=== PATIENT | male | born 1955 | race Caucasian/White ===

== ENCOUNTER 2025-06-30 17:49 | Inpatient (IN) ==
--- NOTE | 2025-06-30 18:15 | Emergency Department Note ---
Impression & Plan Multifocal pneumonia, Hypoxia, Asthma ED Provider Note NAME: ALISON FLORES AGE: 69 SEX: M : 1955 ARRIVES VIA: Walk-In INFORMANT: Patient ED PROVIDER(S): Ismael Parker MD CHIEF COMPLAINT: Shortness of breath, Low O2 PLAN: Disposition: Admit MEDICAL DECISION MAKING: The patient is a pleasant 69-year-old gentleman with a past medical history of chronic sinusitis, history of asthma diagnosed over the past year following with pulmonology in [place], GERD, hypertension, hyperlipidemia, type 2 diabetes who presents to Emergency Department via walk-in accompanied by family for evaluation of worsening shortness of breath over the past several days where her O2 saturation was noted to be in the mid 80s on room air at home with increased work of breathing. Patient reports he has had a flare of his chronic symptoms over the past several days. He adds that he had outpatient testing through pulmonology office a week or so ago including CT imaging and sputum culture which he had brought into the office. He has yet to hear about the results. He denies fevers. He reports productive yellow/white sputum. He reports he finds it difficult to sleep as he will develop coughing fits when lying flat. On my evaluation, the patient is no distress, afebrile with O2 saturation 87% on room air improving to the low-mid 90s on 2L nasal cannula. Heart rate is in the 100s and blood pressure 150s/80s and vital signs otherwise stable. He appears clinically dry. He exhibits rhonchi of the right greater than left bilateral lower lung saini with normal respiratory effort. EKG without overt acute ischemia. CXR negative for acute cardiopulmonary process per my personal preliminary review/interpretation. WBC 13.3 K with neutrophilia but no left shift, nonspecific. Hemoglobin and platelets within normal limits. Chemistry without metabolic acidosis. Electrolytes and LFTs unremarkable. High-sensitivity troponin 6.7, within normal limits. BNP within normal limits. Lipase is normal. Procalcitonin is not elevated. TSH within normal limits. Respiratory BioFire was negative. CTA of the chest was negative for PE. Patchy nodular opacities scattered throughout the right upper and lower lobes and left lower lobe is suspicious for pneumonia. Patient was treated with IV fluid hydration, Solu-Medrol, guaifenesin, DuoNeb as well as flutter valve. Blood cultures ordered and empiric treatment initiated for CAP with CTX and doxycycline. MRSA swab pending. Case was discussed with CLAIR Joseph PAC, with CLAIR Montelongo hospitalist who will evaluate the patient for admission. Further management per admitting team. Triage Nursing notes reviewed and agree them. Prior/external medical records reviewed Vital Signs: reviewed Differential diagnosis: Reactive airway disease, pneumonia, pneumothorax, COPD, CHF, infections, cardiac ischemia, pulmonary embolism, musculoskeletal, gastrointestinal, as well as other pathologies. ER treatment provided: See below. Diagnostics interpreted by me: ECG: Normal sinus rhythm, 94 bpm, no ectopy, no overt ST elevation or depression, QTc 390, QRS 98. Cardiac Monitoring: An order for continuous cardiac monitoring was placed and demonstrated normal sinus rhythm, 94 bpm, no ectopy. Laboratory studies: See below Imaging studies: See below Consultation(s): CLAIR Joseph PAC, with CLAIR Montelongo hospitalist. HPI: Per MDM. ROS: See above HPI for pertinent positives & negatives. A total of 10 systems reviewed and were otherwise negative. VITALS:See Below PHYSICAL EXAMINATION: GENERAL: Awake, alert, in no distress HENT: Normocephalic, atraumatic. Oropharynx with dry mucous membranes and otherwise unremarkable. EYES: Normal conjunctiva. Sclera non-icteric. NECK: Supple. No nuchal rigidity. FROM. No JVD. RESPIRATORY: Rhonchi of the right greater than left bilateral lower lung saini with normal respiratory effort. CARDIAC: Tachycardic rate, normal rhythm. Extremities warm and well perfused. Pulses equal. ABDOMEN: Soft, non-distended. No tenderness to palpation. No rebound or guarding. No masses. MUSCULOSKELETAL: Chest examination reveals no tenderness. The back is symmetrical on inspection without obvious abnormality. There is no CVA tenderness to palpation. No joint edema. LOWER EXTREMITIES: Calves are equal size bilaterally and non-tender. No edema. No discoloration. NEURO: Normal sensorium. No sensory or motor deficits noted. SKIN: No rash or jaundice noted. Ismeal Parker MD Past Med/Surg History Problem List (Updated 07/01/25 @ 00:36 by Ismael Parker MD) Asthma (Acute) Hypoxia (Acute) Multifocal pneumonia (Acute) Chronic pansinusitis Hypertrophy of both inferior nasal turbinates Acquired deviated nasal septum Nasal congestion Sinusitis, maxillary, chronic Medical History Asthma Seasonal allergies High blood pressure Surgical History S/P hip replacement S/P TURP Family History Other Asthma Cancer Hypertension Social History Smoking Status: Never smoker Second Hand Exposure: No; Do You Dip or Chew Tobacco: No; Hx Alcohol Use: No Hx Substance Use: No Preferred Language: [place] Citizen Communication Ability: Effective Hearing Ability: Normal marital status: Current Living Situation: Spouse current occupational status: retired Feels Safe at Home: Yes caffeine: Yes Gender Identity: Male Allergies Allergies Allergy/AdvReac Type Severity Reaction Status Date / Time lisinopril AdvReac Intermediate Cough Verified 06/30/25 19:46 [id number] Reductase AdvReac Intermediate Muscle Pain Unverified 06/30/25 19:46 Inhibitor codeine AdvReac Mild CONSTIPATIO Verified 06/30/25 19:46 N Home Meds Home Medications Medication Instructions Recorded Confirmed azelastine 137 mcg (0.1 %) nasal 1 spray intranasal BID PRN 01/14/25 06/30/25 spray Congestion ibuprofen 200 mg tablet (Advil) 200 mg PO Q6H PRN Pain 01/14/25 06/30/25 losartan 100 mg tablet 100 mg PO DAILY 01/14/25 06/30/25 montelukast 10 mg tablet 10 mg PO DAILY 01/14/25 06/30/25 alprazolam 0.25 mg tablet 0.125 - 0.25 mg PO DAILY PRN 06/30/25 06/30/25 Anxiety ezetimibe 10 mg tablet 10 mg PO DAILY 06/30/25 06/30/25 fluticasone propionate 50 1 - 2 spray intranasal DAILY 06/30/25 06/30/25 mcg/actuation nasal spray,suspension guaifenesin 1,200 mg tablet, 1,200 mg PO Q12H PRN Congestion 06/30/25 06/30/25 extended release 12 hr (Mucinex) ipratropium 0.5 mg-albuterol 3 mg 3 ml inhalation BID 06/30/25 06/30/25 (2.5 mg base)/3 mL nebulization soln metformin 500 mg tablet,extended 1,000 mg PO QAM 06/30/25 06/30/25 release 24 hr mometasone-formoterol HFA 200 2 puff inhalation Q12H 06/30/25 06/30/25 mcg-5 mcg/actuation aerosol inhaler (Dulera) omeprazole 20 mg capsule,delayed 20 mg PO DAILYBB 06/30/25 06/30/25 release Results & Data (ED) Vital Signs Vital Signs - 24 hr 06/30/25 17:59 06/30/25 18:10 06/30/25 18:16 Temperature 36.8 C Temperature Source Oral Pulse Rate 102 H 99 H Pulse Rate [Apical] Pulse Rate from SpO2 Sensor Pulse Rhythm Regular Pulse Rhythm [Apical] Pulse Strength [Apical] Respiratory Rate 20 21 Respiratory Effort / Characteristics Respiratory Depth Respiratory Pattern Blood Pressure 154/89 H Blood Pressure [Right Arm] Blood Pressure Mean 110 Blood Pressure Mean [Right Arm] Blood Pressure Position Sitting Blood Pressure Position [Right Arm] Pulse Oximetry 87 L 88 L 95 Oxygen Delivery Method Room Air Room Air Nasal Cannula Room Air Oxygen Flow Rate Sepsis Recent Fever Within 48 Hours No Sepsis New/Unexplained Change in Mental Status No Sepsis Action Taken by Nursing No Action Required Oxygen Flow Rate - Titration 2 Pulse Oximetry Post Tiitration 95 06/30/25 18:27 06/30/25 18:57 06/30/25 18:59 Temperature Temperature Source Pulse Rate 91 H 93 H Pulse Rate [Apical] Pulse Rate from SpO2 Sensor 92 H Pulse Rhythm Pulse Rhythm [Apical] Pulse Strength [Apical] Respiratory Rate 19 Respiratory Effort / Characteristics Non-Labored Spontaneous Respiratory Depth Normal Respiratory Pattern Regular Blood Pressure Blood Pressure [Right Arm] Blood Pressure Mean Blood Pressure Mean [Right Arm] Blood Pressure Position Blood Pressure Position [Right Arm] Pulse Oximetry 98 Oxygen Delivery Method Nasal Cannula Oxygen Flow Rate 2 Sepsis Recent Fever Within 48 Hours Sepsis New/Unexplained Change in Mental Status Sepsis Action Taken by Nursing Oxygen Flow Rate - Titration Pulse Oximetry Post Tiitration 06/30/25 20:03 06/30/25 22:08 06/30/25 22:31 Temperature Temperature Source Pulse Rate 105 H 89 Pulse Rate [Apical] 82 Pulse Rate from SpO2 Sensor 100 H Pulse Rhythm Pulse Rhythm [Apical] Regular Pulse Strength [Apical] Normal Respiratory Rate 26 H 26 H Respiratory Effort / Characteristics Non-Labored Spontaneous Respiratory Depth Normal Respiratory Pattern Regular Blood Pressure 134/87 Blood Pressure [Right Arm] 126/81 Blood Pressure Mean 102 Blood Pressure Mean [Right Arm] 96 Blood Pressure Position Blood Pressure Position [Right Arm] Semi-fowlers Pulse Oximetry 95 95 Oxygen Delivery Method Room Air Nasal Cannula Oxygen Flow Rate 2 Sepsis Recent Fever Within 48 Hours Sepsis New/Unexplained Change in Mental Status Sepsis Action Taken by Nursing Oxygen Flow Rate - Titration Pulse Oximetry Post Tiitration 07/01/25 00:26 Temperature Temperature Source Pulse Rate Pulse Rate [Apical] Pulse Rate from SpO2 Sensor Pulse Rhythm Pulse Rhythm [Apical] Pulse Strength [Apical] Respiratory Rate Respiratory Effort / Characteristics Respiratory Depth Respiratory Pattern Blood Pressure Blood Pressure [Right Arm] Blood Pressure Mean Blood Pressure Mean [Right Arm] Blood Pressure Position Blood Pressure Position [Right Arm] Pulse Oximetry Oxygen Delivery Method Nasal Cannula Oxygen Flow Rate Sepsis Recent Fever Within 48 Hours Sepsis New/Unexplained Change in Mental Status Sepsis Action Taken by Nursing Oxygen Flow Rate - Titration Pulse Oximetry Post Tiitration Laboratory Data Attestation: I reviewed the patient's lab results. 06/30/25 18:47 06/30/25 18:47 Lab Results 06/30/25 06/30/25 06/30/25 Range/Units 18:32 18:47 22:05 WBC 13.31 H (4.8-10.8) K/ul RBC 4.56 L (4.70-6.10) M/uL Hgb 14.4 (14.0-18.0) g/dl Hct 40.9 L (42.0-52.0) % MCV 89.7 (80.0-100.0) fL MCH 31.6 (25.0-34.0) pg MCHC 35.2 (32.0-36.0) g/dL RDW Std Deviation 41.9 (36.4-46.3) fL RDW Coeff of [place] 12.9 (11.5-14.5) % Plt Count 259 (130-400) K/uL MPV 9.6 (9.4-12.4) fL Immature Gran % (Auto) 0.4 % Neut % (Auto) 82.9 % Lymph % (Auto) 9.8 % [place] % (Auto) 6.2 % Eos % (Auto) 0.5 % Baso % (Auto) 0.2 % Neut # (Auto) 11.04 H (1.40-6.50) K/uL Lymph # (Auto) 1.31 (1.20-3.40) K/uL [place] # (Auto) 0.82 H (0.11-0.59) K/uL Eos # (Auto) 0.06 (0.00-0.50) K/uL Baso # (Auto) 0.03 (0.00-0.20) K/uL Immature Gran # (Auto) 0.05 (0.01-0.20) K/uL PT 11.2 (9.0-12.0) Seconds INR 1.1 (0.9-1.1) VBG pH 7.41 (7.36-7.41) VBG pCO2 46 (38-50) mmHg VBG pO2 33 mmHg VBG HCO3 29 mmol/L VBG O2 Saturation < 60.0 % VBG Base Excess 3.8 mEq/L Sodium 135 L (136-145) mmol/L Potassium 4.3 (3.5-5.1) mmol/L Chloride 100 (98-107) mmol/L Carbon Dioxide 28 (21-32) mmol/L Anion Gap 7 (3-11) BUN 14 (6-23) mg/dl Creatinine 1.06 (0.6-1.4) mg/dl Est Cr Clr Drug Dosing 78.9 ml/min eGFR 75.97 BUN/Creatinine Ratio 13.2 (10-20) Glucose 110 H (70-99(Fasting)) mg/dl Lactate 3.3 H* (0.4-2.0) mmol/L Calcium 9.6 (8.6-10.3) mg/dl Magnesium 1.9 (1.7-2.4) mg/dl Total Bilirubin 0.6 (0.2-1.0) mg/dl AST 15 (13-39) U/L ALT 19 (7-52) U/L Alkaline Phosphatase 90 (34-104) U/L Troponin I High Sens 6.7 (0-20) pg/ml B-Natriuretic Peptide 10 (0-100) pg/ml Total Protein 7.4 (6.0-8.3) gm/dl Albumin 3.9 (3.4-5.0) gm/dl Globulin 3.5 (2.5-4.0) gm/dl Albumin/Globulin Ratio 1.1 (0.9-2) Lipase 12 (11-82) U/L Procalcitonin 0.04 (0-0.5) ng/ml TSH 2.374 (0.300-4.500) uIu/ml Nasal Screen MRSA (PCR) (Negative) Adenovirus (PCR) Not Detected (NotDetected) B. pertussis DNA (PCR) Not Detected (NotDetected) B.parapertussis DNA PCR Not Detected (NotDetected) C. pneumoniae DNA (PCR) Not Detected (NotDetected) Coronavirus OC43 (PCR) Not Detected (NotDetected) Coronavirus HKU1 (PCR) Not Detected (NotDetected) Coronavirus 229E (PCR) Not Detected (NotDetected) SARS-CoV-2 (PCR) Not Detected (NotDetected) Coronavirus NL63 (PCR) Not Detected (NotDetected) Human Metapneumovir PCR Not Detected (NotDetected) Influenza Type A (PCR) Not Detected (NotDetected) Influenza Type B (PCR) Not Detected (NotDetected) M. pneumoniae (PCR) Not Detected (NotDetected) Parainfluenza 1 (PCR) Not Detected (NotDetected) Parainfluenza 2 (PCR) Not Detected (NotDetected) Parainfluenza 3 (PCR) Not Detected (NotDetected) Parainfluenza 4 (PCR) Not Detected (NotDetected) RSV (PCR) Not Detected (NotDetected) Entero/Rhino (PCR) Not Detected (NotDetected) 06/30/25 Range/Units 22:23 WBC (4.8-10.8) K/ul RBC (4.70-6.10) M/uL Hgb (14.0-18.0) g/dl Hct (42.0-52.0) % MCV (80.0-100.0) fL MCH (25.0-34.0) pg MCHC (32.0-36.0) g/dL RDW Std Deviation (36.4-46.3) fL RDW Coeff of [place] (11.5-14.5) % Plt Count (130-400) K/uL MPV (9.4-12.4) fL Immature Gran % (Auto) % Neut % (Auto) % Lymph % (Auto) % [place] % (Auto) % Eos % (Auto) % Baso % (Auto) % Neut # (Auto) (1.40-6.50) K/uL Lymph # (Auto) (1.20-3.40) K/uL [place] # (Auto) (0.11-0.59) K/uL Eos # (Auto) (0.00-0.50) K/uL Baso # (Auto) (0.00-0.20) K/uL Immature Gran # (Auto) (0.01-0.20) K/uL PT (9.0-12.0) Seconds INR (0.9-1.1) VBG pH (7.36-7.41) VBG pCO2 (38-50) mmHg VBG pO2 mmHg VBG HCO3 mmol/L VBG O2 Saturation % VBG Base Excess mEq/L Sodium (136-145) mmol/L Potassium (3.5-5.1) mmol/L Chloride (98-107) mmol/L Carbon Dioxide (21-32) mmol/L Anion Gap (3-11) BUN (6-23) mg/dl Creatinine (0.6-1.4) mg/dl Est Cr Clr Drug Dosing ml/min eGFR BUN/Creatinine Ratio (10-20) Glucose (70-99(Fasting)) mg/dl Lactate (0.4-2.0) mmol/L Calcium (8.6-10.3) mg/dl Magnesium (1.7-2.4) mg/dl Total Bilirubin (0.2-1.0) mg/dl AST (13-39) U/L ALT (7-52) U/L Alkaline Phosphatase (34-104) U/L Troponin I High Sens (0-20) pg/ml B-Natriuretic Peptide (0-100) pg/ml Total Protein (6.0-8.3) gm/dl Albumin (3.4-5.0) gm/dl Globulin (2.5-4.0) gm/dl Albumin/Globulin Ratio (0.9-2) Lipase (11-82) U/L Procalcitonin (0-0.5) ng/ml TSH (0.300-4.500) uIu/ml Nasal Screen MRSA (PCR) Positive A (Negative) Adenovirus (PCR) (NotDetected) B. pertussis DNA (PCR) (NotDetected) B.parapertussis DNA PCR (NotDetected) C. pneumoniae DNA (PCR) (NotDetected) Coronavirus OC43 (PCR) (NotDetected) Coronavirus HKU1 (PCR) (NotDetected) Coronavirus 229E (PCR) (NotDetected) SARS-CoV-2 (PCR) (NotDetected) Coronavirus NL63 (PCR) (NotDetected) Human Metapneumovir PCR (NotDetected) Influenza Type A (PCR) (NotDetected) Influenza Type B (PCR) (NotDetected) M. pneumoniae (PCR) (NotDetected) Parainfluenza 1 (PCR) (NotDetected) Parainfluenza 2 (PCR) (NotDetected) Parainfluenza 3 (PCR) (NotDetected) Parainfluenza 4 (PCR) (NotDetected) RSV (PCR) (NotDetected) Entero/Rhino (PCR) (NotDetected) Administered Medications Vancomycin HCl 2,000 mg/ (Sodium Chloride) 540 mls @ 200 mls/hr IV ONE STA Stop: 07/01/25 01:20 Last Admin: 06/30/25 23:16 Dose: 200 mls/hr Documented By: MAURA Discontinued Medications Albuterol (Albut/Ipratrop 3mg/0.5mg Neb 3 Ml Vial) 3 ml NEB NOW STA; Protocol Stop: 06/30/25 18:25 Last Admin: 06/30/25 18:54 Dose: 3 ml Documented By: ivet Guaifenesin (Guaifenesin 600 Mg Tabcr) 1,200 mg PO NOW STA Stop: 06/30/25 18:25 Last Admin: 06/30/25 18:54 Dose: 1,200 mg Documented By: ivet Sodium Chloride (Nss) 500 mls @ 999 mls/hr IV .Q31M ONE Stop: 06/30/25 18:55 Last Infusion: 06/30/25 19:29 Dose: Infused Documented By: ivet Admin: 06/30/25 18:46 Dose: 999 mls/hr Documented By: PARVIN Ceftriaxone Sodium (Rocephin) 2,000 mg in 50 mls @ 100 mls/hr IV NOW STA Stop: 06/30/25 21:58 Last Admin: 06/30/25 22:33 Dose: Not Given Documented By: ivet Doxycycline Hyclate 100 mg/ (Dextrose) 100 mls @ 50 mls/hr IV NOW STA Stop: 06/30/25 23:28 Last Admin: 06/30/25 22:33 Dose: Not Given Documented By: ivet Cefepime HCl (Maxipime 2000mg) 2,000 mg in 20 mls @ 5 mls/min IV ONE STA; Protocol Stop: 06/30/25 22:43 Last Admin: 06/30/25 23:16 Dose: 5 mls/min Documented By: MAURA Ioversol (Optiray 320 125ml) 115 ml IV ONCE ONE Stop: 06/30/25 19:45 Last Admin: 06/30/25 19:44 Dose: 115 ml Documented By: VICTORINO Methylprednisolone (Methylprednisolone 125 Mg/2 Ml Vial) 125 mg IV NOW STA Stop: 06/30/25 18:25 Last Admin: 06/30/25 18:54 Dose: 125 mg Documented By: ivet Psyllium Hydrophilic Mucilloid (Psyllium Husk 4gm Packet) 4 gm PO NOW STA Stop: 06/30/25 22:28 Last Admin: 06/30/25 23:16 Dose: 4 gm Documented By: MAURA Imaging Data Radiologist's Impression: Chest X-Ray 06/30/25 18:11 Chest radiograph, one view History: Chest pain Comparison: None Findings: Single AP view of the chest performed. No focal consolidation or pleural effusion. No pneumothorax. The cardiomediastinal silhouette is within normal limits. Normal pulmonary vascularity. No evidence for lymphadenopathy. No visualized bony or soft tissue abnormality. Impression: Normal chest radiograph Electronically signed by Mik Baez 06-30-2025 7:01 PM Chest CTA 06/30/25 18:24 Exam(s): CTA CHEST IV Amt: 115 ml optiray 320 EXAM: CT Angiography Chest With Intravenous Contrast CLINICAL HISTORY: Reason for exam: cough, sob, r/o PE. TECHNIQUE: Axial computed tomographic angiography images of the chest with intravenous contrast. CTDI is 37.25 mGy and DLP is 845.9 mGy-cm. Automated exposure control was utilized for the study. A dose lowering technique was utilized adhering to the principles of ALARA. MIP reconstructed images were created and reviewed. COMPARISON: No relevant prior studies available. FINDINGS: Pulmonary arteries: Unremarkable. No pulmonary embolus. Aorta: No acute findings. No thoracic aortic aneurysm. Lungs: Patchy branching nodular opacity scattered throughout the right upper and lower lobes. Similar though less conspicuous branching nodular opacities identified within the left lower lobe. Pleural space: Unremarkable. No significant effusion. No pneumothorax. Heart: Unremarkable. No cardiomegaly. No significant pericardial effusion. No evidence of RV dysfunction. Bones/joints: No acute fracture. No dislocation. Soft tissues: Unremarkable. Lymph nodes: Unremarkable. No enlarged lymph nodes. Liver: Hepatomegaly. Adrenals: 1.2 cm left adrenal gland hypodensity likely representing nodule. IMPRESSION: No pulmonary embolus Multifocal pneumonia Electronically signed by: Rodriguez Jose MD 06/30/25 21:22 PM Discharge Plan Visit Data Chief Complaint: Respiratory Problems Stated Complaint: BREATHING PROBLEMS ED Provider: Ismael Parker Discharge Problem: Multifocal pneumonia, Hypoxia, Asthma Patient Disposition: Admitted As Inpatient Condition: Fair Discharge Instructions Interventions: ED Discharge Assessment Last Done: 07/01/25 00:26 Forms Stand Alone Forms: [facility] Prescriptions Prescriptions: No Action losartan 100 mg tablet 100 mg PO DAILY montelukast 10 mg tablet 10 mg PO DAILY ibuprofen [Advil] 200 mg tablet 200 mg PO Q6H PRN (Reason: Pain) azelastine 137 mcg (0.1 %) spray,non-aerosol 1 spray intranasal BID PRN (Reason: Congestion) Rx Instructions: administer into each nostril ipratropium-albuterol 0.5 mg-3 mg(2.5 mg base)/3 mL solution for nebulization 3 ml INHALATION BID alprazolam 0.25 mg tablet 0.125 - 0.25 mg PO DAILY PRN (Reason: Anxiety) omeprazole 20 mg capsule,delayed release(DR/EC) 20 mg PO DAILYBB fluticasone propionate 50 mcg/actuation spray,suspension 1 - 2 spray INTRANASAL DAILY metformin 500 mg tablet extended release 24 hr 1,000 mg PO QAM ezetimibe 10 mg tablet 10 mg PO DAILY guaifenesin [Mucinex] 1,200 mg Tablet Extended Release 12hr 1,200 mg PO Q12H PRN (Reason: Congestion) Dulera 200-5 mcg/actuation HFA aerosol inhaler 2 puff INHALATION Q12H Referrals Referrals: PCP,NO [Physician] - Discharge Problem: Asthma Qualifiers: Asthma severity: unspecified severity Asthma persistence: unspecified Asthma complication type: with acute exacerbation Qualified Code(s): J45.901 - Unspecified asthma with (acute) exacerbation
[2025-06-30] MEDS: SODIUM CHLORIDE 0.9% 500 ML IV ONE (18:46)
[2025-06-30] MEDS: guaiFENesin 600 MG TABCR PO STA (18:54)
[2025-06-30] MEDS: ALBUT/IPRATROP 3MG/0.5MG NEB 3 ML VIAL NEB STA (18:54)
[2025-06-30 18:58] LABS: Base Excess VBG 3.8 mEq/L; HCO3 VBG 29 mmol/L; Oxygen Saturation VBG < 60.0 %; PCO2 VBG 46 mmHg (38-50); PO2 VBG 33 mmHg; pH VBG 7.41 (7.36-7.41)
--- NOTE | 2025-06-30 19:01 | XRay Report ---
Chest radiograph, one view History: Chest pain Comparison: None Findings: Single AP view of the chest performed. No focal consolidation or pleural effusion. No pneumothorax. The cardiomediastinal silhouette is within normal limits. Normal pulmonary vascularity. No evidence for lymphadenopathy. No visualized bony or soft tissue abnormality. Impression: Normal chest radiograph Electronically signed by Mik Baez 06-30-2025 7:01 PM
[2025-06-30 19:04] LABS: Hematocrit (blood only) 40.9 % (42.0-52.0); Hemoglobin 14.4 g/dl (14.0-18.0); Immature Granulocytes # (auto) 0.05 K/uL (0.01-0.20); Immature Granulocytes % (auto) 0.4 %; Mean Corpuscular Hemoglobin 31.6 pg (25.0-34.0); Mean Corpuscular Volume 89.7 fL (80.0-100.0); Platelet Count 259 K/uL (130-400); RDW Standard Deviation 41.9 fL (36.4-46.3); Red Blood Count 4.56 M/uL (4.70-6.10); White Blood Count 13.31 K/ul (4.8-10.8)
[2025-06-30 19:22] LABS: Alanine Aminotransferase 19.0 U/L (7-52); Albumin Globulin Ratio 1.1 (0.9-2); Albumin Level 3.9 gm/dl (3.4-5.0); Alkaline Phosphatase 90.0 U/L (34-104); Anion Gap 7.0 (3-11); Bilirubin,Total 0.6 mg/dl (0.2-1.0); Blood Urea Nitrogen 14.0 mg/dl (6-23); Calcium 9.6 mg/dl (8.6-10.3); Carbon Dioxide 28.0 mmol/L (21-32); Chloride 100.0 mmol/L (98-107); Creatinine Clr Calc Pharmacy 78.9 ml/min; Globulin 3.5 gm/dl (2.5-4.0); Glucose 110.0 mg/dl (70-99(Fasting)); Lipase 12.0 U/L (11-82); Magnesium 1.9 mg/dl (1.7-2.4); Potassium 4.3 mmol/L (3.5-5.1); Sodium 135.0 mmol/L (136-145); Total Protein 7.4 gm/dl (6.0-8.3)
[2025-06-30 19:37] LABS: Thyroid Stimulating Hormone 2.374 uIu/ml (0.300-4.500)
[2025-06-30 19:43] LABS: Chlamydia pneumoniae PCR Not Detected (NotDetected); Coronavirus 229E PCR Not Detected (NotDetected); Coronavirus CoV-2 (COVID19)PCR Not Detected (NotDetected); Coronavirus HKU1 PCR Not Detected (NotDetected); Coronavirus NL63 PCR Not Detected (NotDetected); Coronavirus OC43PCR Not Detected (NotDetected); Human Metapneumovirus PCR Not Detected (NotDetected); Parainfluenza Virus 1 PCR Not Detected (NotDetected); Parainfluenza Virus 2 PCR Not Detected (NotDetected); Parainfluenza Virus 3 PCR Not Detected (NotDetected); Parainfluenza Virus 4 PCR Not Detected (NotDetected); Respiratory Syncytial VirusPCR Not Detected (NotDetected); Rhinovirus/Enterovirus PCR Not Detected (NotDetected)
[2025-06-30] MEDS: OPTIRAY 320 125ml IV ONE (19:44)
[2025-06-30 19:46] LABS: INR 1.1 (0.9-1.1); Prothrombin Time 11.2 Seconds (9.0-12.0)
--- NOTE | 2025-06-30 21:23 | CT Scan Report ---
Exam(s): CTA CHEST IV Amt: 115 ml optiray 320 EXAM: CT Angiography Chest With Intravenous Contrast CLINICAL HISTORY: Reason for exam: cough, sob, r/o PE. TECHNIQUE: Axial computed tomographic angiography images of the chest with intravenous contrast. CTDI is 37.25 mGy and DLP is 845.9 mGy-cm. Automated exposure control was utilized for the study. A dose lowering technique was utilized adhering to the principles of ALARA. MIP reconstructed images were created and reviewed. COMPARISON: No relevant prior studies available. FINDINGS: Pulmonary arteries: Unremarkable. No pulmonary embolus. Aorta: No acute findings. No thoracic aortic aneurysm. Lungs: Patchy branching nodular opacity scattered throughout the right upper and lower lobes. Similar though less conspicuous branching nodular opacities identified within the left lower lobe. Pleural space: Unremarkable. No significant effusion. No pneumothorax. Heart: Unremarkable. No cardiomegaly. No significant pericardial effusion. No evidence of RV dysfunction. Bones/joints: No acute fracture. No dislocation. Soft tissues: Unremarkable. Lymph nodes: Unremarkable. No enlarged lymph nodes. Liver: Hepatomegaly. Adrenals: 1.2 cm left adrenal gland hypodensity likely representing nodule. IMPRESSION: No pulmonary embolus Multifocal pneumonia Electronically signed by: Rodriguez Jose MD 06/30/25 21:22 PM
--- NOTE | 2025-06-30 21:56 | History & Physical Report ---
Date of Service June 30, 2025 Assessment & Plan (1) Multifocal pneumonia: (2) Hypoxia: (3) Asthma: Plan 69-year-old male PMHx asthma and chronic sinus conditions presenting for worsening shortness of breath and congestion over the past week. His evaluation is significant for mild leukocytosis, but normal VBGs, BNP, and procal. CTA chest reveals evidence of multifocal PNA. Given recent doctor's office visit with possible exposure as well as in setting of hypoxia and evidence of infection, admission for HAP for IV antibiotics. #HAP/Hypoxia/Asthma Ongoing congestion and shortness of breath, seen by assembler finger buffs ~ 2 weeks TIPPLE ENGINEER, pending sputum culture and chest CT results from outpatient provider. Documented history of asthma, on inhalers daily and montelukast. Given recent healthcare exposure, will treat for HAP. No O2 at baseline. Received methylprednisolone IV in ED. - CBC leukocytosis 13.31; VBG's WNL; troponin 6.7; BNP 10; procalcitonin 0.04; MRSA swab pending - CBC am - BioFire negative - Sputum culture pending, blood cx pending - CXR WNL - Chest CTA negative for PE, reveals multifocal PNA - EKG NSR - O2 via NC to maintain >92%; No O2 at baseline - Flutter valve + incentive spirometer - Acetaminophen prn fever/pain - Hypertonic saline nebs BID - Mucinex BID - Cont Dulera - DuoNebs sylwia - Vanco + cefepime IV #HTN- Losartan - continue #HLD- Ezetimibe - continue #T2DM- Metformin - hold at admission #GERD- Omeprazole - continue #Psych- Alprazolam prn - continue Dispo: Admit, med/tele VTE Prophylaxis: Lovenox This document was dictated utilizing [employer]. Please excuse any grammatical errors that may be secondary to use of this software. Admission and Anticipated Discharge Date Admission Date: 06/30/2025 History of Present Illness Chief Complaint: SOB Primary Care Provider: Roseline Maher 69-year-old male PMHx asthma and chronic sinus conditions presenting for worsening shortness of breath and congestion over the past week. Patient was seen by his assembler finger buffs 2 weeks TIPPLE ENGINEER, still waiting for chest imaging and sp utum culture results to return. Patient states that he was diagnosed with asthma, but that his PCP was concerned that there was another underlying diagnosis. He does admit to on and off shortness of breath that has been worsening over the past week, stating that his chest will get tight at times and he feels as though he cannot get a full breath in and out. Over the weekend, he started to develop worsening productive cough with yellow sputum. He has to cough up sputum approximately every 15 minutes. 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 He did have chills the day TIPPLE ENGINEER, but no documented fever. Patient states that he often has sinus symptoms and he did have a sinus surgery in February or March 2025. He uses daily sinus rinses. Overall the cough and shortness of breath is worsened, prompting him to come to the ED in conjunction with low oxygen readings at home, into the mid 80s. Patient denies chest pain, palpitations, abdominal pain, N/V/D/C, numbness/tingling, fever, LUTS, additional URI symptoms, weakness, or falls. No known sick contacts. Never smoked. Patient does landscaping, states that there may be possible exposure irritating his breathing. He does use his daily nebulizer and inhalers. ED evaluation reveals CBC with mild leukocytosis 13.31, H&H 14.4/40.9; PT/INR WNL; VBG's WNL; CMP sodium 135, glucose 110; troponin 6.7; BNP 10; procalcitonin 0.04; BioFire negative; CXR WNL; chest CTA no PE, multifocal PNA noted; EKG NSR at 94 bpm.; Provided with 500 mL NSS, methylprednisolone 125 mg IV, guaifenesin 1200 mg p.o., doxycycline 100 mg IV, ceftriaxone 2 g IV, and albuterol nebulizer in ED. Please see Dr. Fleming's attestation for adjustments/additions to treatment plan. Allergies Allergy/AdvReac Type Severity Reaction Status Date / Time lisinopril AdvReac Intermediate Cough Verified 06/30/25 19:46 Gespzby-GPO-SoN Reductase AdvReac Intermediate Muscle Pain Unverified 06/30/25 19:46 Inhibitor codeine AdvReac Mild CONSTIPATIO Verified 06/30/25 19:46 N Home Medications Medication Instructions Recorded Confirmed Type azelastine 137 mcg (0.1 %) nasal 1 spray intranasal BID PRN 01/14/25 06/30/25 History spray Congestion ibuprofen 200 mg tablet (Advil) 200 mg PO Q6H PRN Pain 01/14/25 06/30/25 History losartan 100 mg tablet 100 mg PO DAILY 01/14/25 06/30/25 History montelukast 10 mg tablet 10 mg PO DAILY 01/14/25 06/30/25 History alprazolam 0.25 mg tablet 0.125 - 0.25 mg PO DAILY PRN 06/30/25 06/30/25 History Anxiety ezetimibe 10 mg tablet 10 mg PO DAILY 06/30/25 06/30/25 History fluticasone propionate 50 1 - 2 spray intranasal DAILY 06/30/25 06/30/25 History mcg/actuation nasal spray,suspension guaifenesin 1,200 mg tablet, 1,200 mg PO Q12H PRN Congestion 06/30/25 06/30/25 History extended release 12 hr (Mucinex) ipratropium 0.5 mg-albuterol 3 mg 3 ml inhalation BID 06/30/25 06/30/25 History (2.5 mg base)/3 mL nebulization soln metformin 500 mg tablet,extended 1,000 mg PO QAM 06/30/25 06/30/25 History release 24 hr mometasone-formoterol HFA 200 2 puff inhalation Q12H 06/30/25 06/30/25 History mcg-5 mcg/actuation aerosol inhaler (Dulera) omeprazole 20 mg capsule,delayed 20 mg PO DAILYBB 06/30/25 06/30/25 History release Past Med/Surg History Problem List (Updated 07/01/25 @ 00:36 by Ismael Parker MD) Asthma (Acute) Hypoxia (Acute) Multifocal pneumonia (Acute) Chronic pansinusitis Hypertrophy of both inferior nasal turbinates Acquired deviated nasal septum Nasal congestion Sinusitis, maxillary, chronic Medical History Asthma Seasonal allergies High blood pressure Surgical History S/P hip replacement S/P TURP Family History Other Asthma Cancer Hypertension Social History Smoking Status: Never smoker Second Hand Exposure: No; Do You Dip or Chew Tobacco: No; Hx Alcohol Use: Yes Alcohol type: hard liquor Hx Substance Use: No Preferred Language: Togolese Communication Ability: Effective Hearing Ability: Normal Lead Dental Assistant Required: No Beliefs That Will Affect Care: None marital status: Current Living Situation: Spouse current occupational status: retired Other Information That Helps Us Care for You: No Feels Safe at Home: Yes Safety Concerns: Feels Safe At This Time caffeine: Yes Gender Identity: Male Assistive Devices: None Review of Systems Review of Systems: All systems reviewed & are unremarkable except as noted in Subjective Physical Exam Physical Exam: General: No acute distress Skin: Warm and dry Head: Normocephalic, atraumatic Eyes: PERRL, conjunctivae clear, sclera non-icteric ENT: External ear and ear canal without swelling; nose atraumatic; good dentition, tongue normal appearance, pharynx normal Neck: Supple, no LAD Cardio: RRR, no M/G/R, S1 and S2 normal Resp: Wearing O2 via NC (not at baseline); no respiratory distress, mild crackles RLL otherwise lungs CTA, no wheezes, rales, or rhonchi Abdomen: Soft, symmetric, nontender; No masses or hepatosplenomegaly; Bowel sounds normoactive MSK: No deformities; pulses palpable and equal; no edema. Neuro: Awake, alert; Sensation intact bilaterally; CN grossly intact Psych: Appropriate mood and affect; good judgement and insight. and daughter present in room at time of visit. Results & Data Results & Data Vital Signs (Past 12 Hours) Vital Signs Temp Pulse Resp BP Pulse Ox O2 Del Method O2 Flow Rate 06/30/25 20:03 105 H 26 H 134/87 95 Room Air 06/30/25 18:59 Nasal Cannula 2 06/30/25 18:57 93 H 19 98 06/30/25 18:27 91 H 06/30/25 18:16 99 H 21 95 Room Air 06/30/25 18:10 88 L Room Air, Nasal Cannula 06/30/25 17:59 36.8 C 102 H 20 154/89 H 87 L Room Air Laboratory Results 06/30/25 06/30/25 18:47 18:32 WBC 13.31 H RBC 4.56 L Hgb 14.4 Hct 40.9 L MCV 89.7 MCH 31.6 MCHC 35.2 RDW Std Deviation 41.9 RDW Coeff of [place] 12.9 Plt Count 259 MPV 9.6 Immature Gran % (Auto) 0.4 Neut % (Auto) 82.9 Lymph % (Auto) 9.8 [place] % (Auto) 6.2 Eos % (Auto) 0.5 Baso % (Auto) 0.2 Neut # (Auto) 11.04 H Lymph # (Auto) 1.31 [place] # (Auto) 0.82 H Eos # (Auto) 0.06 Baso # (Auto) 0.03 Immature Gran # (Auto) 0.05 PT 11.2 INR 1.1 VBG pH 7.41 VBG pCO2 46 VBG pO2 33 VBG HCO3 29 VBG O2 Saturation < 60.0 VBG Base Excess 3.8 Sodium 135 L Potassium 4.3 Chloride 100 Carbon Dioxide 28 Anion Gap 7 BUN 14 Creatinine 1.06 Est Cr Clr Drug Dosing 78.9 eGFR 75.97 BUN/Creatinine Ratio 13.2 Glucose 110 H Calcium 9.6 Magnesium 1.9 Total Bilirubin 0.6 AST 15 ALT 19 Alkaline Phosphatase 90 Troponin I High Sens 6.7 B-Natriuretic Peptide 10 Total Protein 7.4 Albumin 3.9 Globulin 3.5 Albumin/Globulin Ratio 1.1 Lipase 12 Procalcitonin 0.04 TSH 2.374 Adenovirus (PCR) Not Detected B. pertussis DNA (PCR) Not Detected B.parapertussis DNA PCR Not Detected C. pneumoniae DNA (PCR) Not Detected Coronavirus OC43 (PCR) Not Detected Coronavirus HKU1 (PCR) Not Detected Coronavirus 229E (PCR) Not Detected SARS-CoV-2 (PCR) Not Detected Coronavirus NL63 (PCR) Not Detected Human Metapneumovir PCR Not Detected Influenza Type A (PCR) Not Detected Influenza Type B (PCR) Not Detected M. pneumoniae (PCR) Not Detected Parainfluenza 1 (PCR) Not Detected Parainfluenza 2 (PCR) Not Detected Parainfluenza 3 (PCR) Not Detected Parainfluenza 4 (PCR) Not Detected RSV (PCR) Not Detected Entero/Rhino (PCR) Not Detected Diagnostic Findings Chest X-Ray 06/30/25 18:11 Chest radiograph, one view History: Chest pain Comparison: None Findings: Single AP view of the chest performed. No focal consolidation or pleural effusion. No pneumothorax. The cardiomediastinal silhouette is within normal limits. Normal pulmonary vascularity. No evidence for lymphadenopathy. No visualized bony or soft tissue abnormality. Impression: Normal chest radiograph Electronically signed by BaezMik 06-30-2025 7:01 PM Chest CTA 06/30/25 18:24 Exam(s): CTA CHEST IV Amt: 115 ml optiray 320 EXAM: CT Angiography Chest With Intravenous Contrast CLINICAL HISTORY: Reason for exam: cough, sob, r/o PE. TECHNIQUE: Axial computed tomographic angiography images of the chest with intravenous contrast. CTDI is 37.25 mGy and DLP is 845.9 mGy-cm. Automated exposure control was utilized for the study. A dose lowering technique was utilized adhering to the principles of ALARA. MIP reconstructed images were created and reviewed. COMPARISON: No relevant prior studies available. FINDINGS: Pulmonary arteries: Unremarkable. No pulmonary embolus. Aorta: No acute findings. No thoracic aortic aneurysm. Lungs: Patchy branching nodular opacity scattered throughout the right upper and lower lobes. Similar though less conspicuous branching nodular opacities identified within the left lower lobe. Pleural space: Unremarkable. No significant effusion. No pneumothorax. Heart: Unremarkable. No cardiomegaly. No significant pericardial effusion. No evidence of RV dysfunction. Bones/joints: No acute fracture. No dislocation. Soft tissues: Unremarkable. Lymph nodes: Unremarkable. No enlarged lymph nodes. Liver: Hepatomegaly. Adrenals: 1.2 cm left adrenal gland hypodensity likely representing nodule. IMPRESSION: No pulmonary embolus Multifocal pneumonia Electronically signed by: Rodriguez Jose MD 06/30/25 21:22 PM Medications Administered 500 mL NSS Methylprednisolone 125 mg IV Guaifenesin 1200 mg p.o. Doxycycline 100 mg IV Ceftriaxone 2 g IV Albuterol nebulizer ECG Additional Comments: NSR 94 bpm, MA 172, QRS 98, QT/QTc 312/390, PRT -16/-12/-4 Code Status & VTE Plan Code Status Full Supervising Physician Co-Signing Physician Notes Attending addendum: I have physically seen this patient, have supervised the GARY's activities, and agree with the H&P unless as otherwise noted. Assessment and Plan: The patient is a 69-year-old male with a past medical history including asthma, chronic sinus condition, hyperlipidemia, anxiety, diabetes mellitus, and GERD. He presents to the emergency department with worsening shortness of breath and chest congestion over the past week. CTA chest was negative for PE, but did show evidence of multifocal pneumonia. He was also found to be hypoxic, with pulse ox in the mid 80s, which improved with nasal cannula oxygen. Admitted to a monitored bed for HAP on IV antibiotics. HAP/hypoxia/asthma exacerbation- Admitting to monitored bed Respiratory BioFire testing negative. Sputum culture and Gram stain pending Normal-appearing chest x-ray CTA chest negative for PE protocol does show multifocal pneumonia. Room air pulse ox mid 80s, improved with nasal cannula oxygen with titration goal to 92% Flutter valve Incentive spirometry Acetaminophen 650 mg by mouth every 6 hours as needed for mild pain or fever Hypertonic saline nebs twice daily Mucinex 600 mg p.o. twice daily Continue Dulera Duonebs every 4 hours while awake and every 2 hours when necessary. Vancomycin IV and cefepime IV Hypertension- Continue losartan with hold parameters Hyperlipidemia- Continue Zetia Diabetes mellitus Holding metformin GERD- Change omeprazole to pantoprazole per formulary interchange Anxiety- Continue alprazolam as needed PG Care Time/CCT Total # of Minutes Spent Total Time Spent with Patient: Total time spent is greater than 50% in coordination of care (as documented) at patient's floor/unit and/or counseling patient: Coding Level of Care Code 83507 INT INP/OBS CARE 3/75MIN Diagnoses Multifocal pneumonia J18.8 Hypoxia R09.02 Asthma J45.901 Asthma complication type: with acute exacerbation Asthma persistence: unspecified Asthma severity: unspecified severity (3) Asthma Asthma complication type: with acute exacerbation Asthma persistence: unspecified Asthma severity: unspecified severity Qualified Code(s): J45.901 - Unspecified asthma with (acute) exacerbation
[2025-06-30] MEDS ORDERED: VANCOMYCIN CONSULT ACTIVE PRN (22:27)
[2025-06-30] MEDS: DOXYCYCLINE HYCLATE 100 MG in DEXTROSE 5% MINI-B 100 ML IV STA (22:33)
[2025-06-30] MEDS: cefTRIAXone SODIUM 2,000 MG/50 ML BAG IV STA (22:33)
[2025-06-30] MEDS: VANCOMYCIN HCL 2,000 MG in SODIUM CHLORIDE 0.9% 500 ML IV STA (23:16)
[2025-06-30] MEDS: CEFEPIME 2000MG 2,000 MG/20 ML SYR IV STA (23:16)
[2025-06-30] MEDS: PSYLLIUM HUSK 4GM PACKET PO STA (23:16)
[2025-07-01] MEDS ORDERED: IBUPROFEN 200 MG TAB PO PRN (00:55)
[2025-07-01] MEDS ORDERED: AZELASTINE HCL 0.1% NASAL 200 SPRAYS/27,400 MCG BTL PRN (00:55)
[2025-07-01] MEDS ORDERED: POLYETHYLENE (MIRALAX) 17 GM PACK PO PRN (00:55)
[2025-07-01] MEDS ORDERED: ONDANSETRON INJ 2 MG/ML 2 ML VIAL IV PRN (00:55)
[2025-07-01] MEDS ORDERED: guaiFENesin 600 MG TABCR PO PRN (00:55)
[2025-07-01] MEDS ORDERED: MELATONIN 3 MG TAB PO PRN (00:55)
[2025-07-01] MEDS: ALBUT/IPRATROP 3MG/0.5MG NEB 3 ML VIAL NEB SCH (03:26)
[2025-07-01 07:27] LABS: Hematocrit (blood only) 40.6 % (42.0-52.0); Hemoglobin 14.1 g/dl (14.0-18.0); Mean Corpuscular Hemoglobin 31.2 pg (25.0-34.0); Mean Corpuscular Volume 89.8 fL (80.0-100.0); Platelet Count 272 K/uL (130-400); RDW Standard Deviation 42.1 fL (36.4-46.3); Red Blood Count 4.52 M/uL (4.70-6.10); White Blood Count 10.57 K/ul (4.8-10.8)
[2025-07-01] MEDS: SODIUM CHLOR 7% 4 ML NEB NEB SCH (07:35)
[2025-07-01 07:47] LABS: Creatinine Clr Calc Pharmacy 86.1 ml/min
[2025-07-01] MEDS: EZETIMIBE 10 MG TAB PO SCH (08:01)
[2025-07-01] MEDS: ENOXAPARIN INJ 40 MG/0.4 ML SYR SQ SCH (08:01)
[2025-07-01] MEDS: MONTELUKAST SODIUM 10 MG TABLET PO SCH (08:01)
[2025-07-01] MEDS: LOSARTAN POTASSIUM 50 MG TAB PO SCH (08:01)
[2025-07-01] MEDS: VANCOMYCIN HCL 1,000 MG in SODIUM CHLORIDE 0.9% 250 ML IV SCH (08:02)
[2025-07-01] MEDS: FLUTICASONE/VILANTEROL 100/25MCG 14 PUFFS/INHALER INH SCH (08:02)
[2025-07-01] MEDS: FLUTICASONE PROPIONATE NA SPR 16 GM BTL SCH (08:02)
[2025-07-01] MEDS: INFLUENZA VACC TS2025-26(65y+)/PF (IIV3) 0.5mL Syr IM ONE (08:03)
[2025-07-01] MEDS: CEFEPIME 2000MG 2,000 MG/20 ML SYR IV SCH (08:03)
--- NOTE | 2025-07-01 08:46 | Pharmacy Report ---
Pharmacy PK ABX Note - Date of Service July 01, 2025 - Assessment and Plan Assessment 69 year old M receiving vancomycin/cefepime for treatment of HAP. Pertinent microbiologic data includes: Positive MRSA Nasal Swab, blood and sputum cultures pending. Day # 1 of antimicrobial therapy. Plan Vancomycin * Loading dose: 2000 mg IV x 1 * Maintenance dose: 1000 mg IV every 12 hours * Regimen is predicted to achieve target AUC/DON of 400-600 mg/L.hr * Trough level ordered for: 07/02/25 @0730 Pharmacy will continue to follow and will adjust dose/frequency as necessary. Thank you. Pharmacy has transitioned to AUC monitoring for vancomycin. AUC/DON is the preferred PK/PD target and is associated with decreased risk of nephrotoxicity compared to traditional trough targets.
--- NOTE | 2025-07-01 13:47 | Hospitalist Progress Note ---
Date of Service July 01, 2025 Assessment & Plan (1) Multifocal pneumonia: (2) Hypoxia: (3) Asthma: Plan 69-year-old male PMHx asthma and chronic sinus conditions presenting for worsening shortness of breath and congestion over the past week. His evaluation is significant for mild leukocytosis, but normal VBGs, BNP, and procal. CTA chest reveals evidence of multifocal PNA. Given recent doctor's office visit with possible exposure as well as in setting of hypoxia and evidence of infection, admission for HAP for IV antibiotics. #HAP/Hypoxia/Asthma with acute exacerbation (moderate)- Ongoing congestion and shortness of breath, seen by gold leaf roller ~ 2 weeks HR ADVISOR, pending sputum culture and chest CT results from outpatient provider ([facility]). Documented history of asthma, on inhalers daily and montelukast. No O2 at use at home. Received methylprednisolone IV in ED. - CBC leukocytosis 13.31; VBG's WNL; troponin 6.7; BNP 10; procalcitonin 0.04 on arrival - CBC without leukocytosis this am - BioFire negative - Sputum culture gram stain with many gram neg bacilli, few gram neg cocci, mod gram + cocci , blood cx pending - MRSA nasal swab + - CXR WNL - Chest CTA negative for PE, reveals multifocal PNA - EKG NSR - O2 via NC to maintain >92%; No O2 at baseline, requiring 2-3 LPM on nasal cannula for oxygen saturations in low to mid 90s - Flutter valve + incentive spirometer - Acetaminophen prn fever/pain - Hypertonic saline nebs BID - Mucinex BID - Cont Dulera - DuoNebs scheduled - Vanco + cefepime IV, tailor IV abx pending sputum culture, keep Vanco considering positive MRSA nares #HTN -cont Losartan #HLD -continue Zetia #T2DM -hold Metformin as trending CR levels while on Vanco -ACHS blood sugar checks -Novolog SSI as needed #GERD -cont PPI #Psych -alprazolam prn Dispo: Admit, med/tele VTE Prophylaxis: Lovenox Admission and Anticipated Discharge Date Admission Date: June 30, 2025 Subjective Patient sitting up in bed this am with no complaints. States he does feel less SOB although he is on supplemental nasal cannula to maintain SPO2 measurements in low 90s. Eating and drinking well. Denies fever, chills, SOB at rest. Review of Systems Review of Systems: All systems reviewed & are unremarkable except as noted in Subjective Physical Exam Physical Exam: GENERAL APPEARANCE: A&O. Sitting comfortably in bed. NAD. SKIN: Normal color without rashes or lesions. Normal turgor. HEENT: Head AT/NC. Buccal mucosa is moist and pink. NECK: No jugular venous distention. No thyroid enlargement. There is no lymphadenopathy. HEART: RRR without m/g/r LUNGS: Normal inspiratory effort. CTA in upper anterior/posterior saini. Scattered rhonchi in mid-lower bilateral lung saini. ABDOMEN: No guarding or rigidity. Normoactive BS in all four quadrants. Abdomen soft and NT. MSK: No bony gross/deformities throughout. ROM intact. EXTREMITIES: No edema, No peripheral cyanosis. Neuro: CN 2-12 grossly intact. No focal neuro deficits PSYCHIATRIC: Normal affect. Eye contact is good. Speech is normal rate and content. Responses are appropriate. Results & Data Results & Data Vital Signs (Past 12 Hours) Vital Signs Temp Pulse Pulse Resp BP BP Pulse Ox 07/01/25 11:31 07/01/25 11:16 78 18 91 07/01/25 10:23 36.4 C L 81 18 152/72 H 92 07/01/25 07:37 70 18 93 07/01/25 07:34 67 07/01/25 07:15 36.4 C L 63 18 129/74 93 07/01/25 03:26 76 16 94 07/01/25 02:35 36.7 C 77 16 145/83 H 94 O2 Del Method O2 Flow Rate 07/01/25 11:31 Nasal Cannula 2 07/01/25 11:16 Nasal Cannula 2 07/01/25 10:23 Nasal Cannula 3 07/01/25 07:37 Nasal Cannula 3 07/01/25 07:34 07/01/25 07:15 Nasal Cannula 3 07/01/25 03:26 Nasal Cannula 3 07/01/25 02:35 Nasal Cannula 3 Laboratory Results labs reviewed PG Care Time/CCT Total # of Minutes Spent Total Time Spent with Patient: Total time spent is greater than 50% in coordination of care (as documented) at patient's floor/unit and/or counseling patient: Coding Level of Care Code 92367 SUB INP/OBS CARE 3/50MIN Diagnoses Multifocal pneumonia J18.8 Hypoxia R09.02 Asthma J45.901 Asthma complication type: with acute exacerbation Asthma persistence: unspecified Asthma severity: unspecified severity (3) Asthma Asthma complication type: with acute exacerbation Asthma persistence: unspecified Asthma severity: unspecified severity Qualified Code(s): J45.901 - Unspecified asthma with (acute) exacerbation
[2025-07-01] MEDS: INSULIN ASPART PER UNIT CHARGE SC SCH (17:49)
[2025-07-01] MEDS: PSYLLIUM HUSK 4GM PACKET PO SCH (21:34)
[2025-07-02 07:58] LABS: Hematocrit (blood only) 39.1 % (42.0-52.0); Hemoglobin 13.0 g/dl (14.0-18.0); Immature Granulocytes # (auto) 0.04 K/uL (0.01-0.20); Immature Granulocytes % (auto) 0.5 %; Mean Corpuscular Hemoglobin 29.9 pg (25.0-34.0); Mean Corpuscular Volume 89.9 fL (80.0-100.0); Platelet Count 223 K/uL (130-400); RDW Standard Deviation 42.0 fL (36.4-46.3); Red Blood Count 4.35 M/uL (4.70-6.10); White Blood Count 8.38 K/ul (4.8-10.8)
[2025-07-02 08:16] LABS: Creatinine Clr Calc Pharmacy 86.2 ml/min
--- NOTE | 2025-07-02 08:56 | Pharmacy Report ---
Pharmacy PK ABX Note - Date of Service July 02, 2025 - Assessment and Plan Assessment 07/02: Reviewed vancomycin level, predicting slightly subtherapeutic AUC/DON, will increase dose of vancomycin slightly with next dose. Blood cultures no growth x24 hours, sputum culture pending. 69 year old M receiving vancomycin/cefepime for treatment of HAP. Pertinent microbiologic data includes: Positive MRSA Nasal Swab, blood and sputum cultures pending. Day # 2 of antimicrobial therapy. Plan Vancomycin * Loading dose: 2000 mg IV x 1 * Maintenance dose: 1250 mg IV every 12 hours * Regimen is predicted to achieve target AUC/DON of 400-600 mg/L.hr * Trough level ordered for: 07/04/25 @0530 Pharmacy will continue to follow and will adjust dose/frequency as necessary. Thank you. Pharmacy has transitioned to AUC monitoring for vancomycin. AUC/DON is the preferred PK/PD target and is associated with decreased risk of nephrotoxicity compared to traditional trough targets.
[2025-07-02] MEDS: VANCOMYCIN LEVEL ONE (09:40)
[2025-07-02] MEDS: ACETAMINOPHEN 325 MG TAB PO PRN (10:47)
[2025-07-02] MEDS: VANCOMYCIN HCL 1,250 MG in SODIUM CHLORIDE 0.9% 250 ML IV SCH (17:24)
--- NOTE | 2025-07-02 17:53 | Discharge Summary ---
Discharge Summary Date of Service July 02, 2025 Principal Dx & Hospital Course #1 = Principal Diagnosis (1) Multifocal pneumonia: (2) Hypoxia: (3) Asthma: Plan 69-year-old male PMHx asthma and chronic sinus conditions presenting for worsening shortness of breath and congestion over the past week. His evaluation is significant for mild leukocytosis, but normal VBGs, BNP, and procal. CTA chest reveals evidence of multifocal PNA. Given recent doctor's office visit with possible exposure as well as in setting of hypoxia and evidence of infection, admission for HAP for IV antibiotics. Patient was treated empirically with Vancomycin/Cefepime IV with improvement in symptoms including SPENCE and feeling of restricted breathing. He was able to be weaned off of supplemental oxygen on day of d/c with successful completion of 2 step test without desaturation and excellent tolerance of exercise on room air. Blood cultures with no preliminary growth. Sputum culture with prelim of haemophilus influenza A beta lactamase posi tive>sensitivities pending. #HAP/Hypoxia/Asthma with acute exacerbation (moderate)- Ongoing congestion and shortness of breath, seen by instructional supervisor ~ 2 weeks [employer], pending sputum culture and chest CT results from outpatient provider ([facility]). Documented history of asthma, on inhalers daily and montelukast. No O2 at use at home. Received methylprednisolone IV in ED. - CBC leukocytosis 13.31; VBG's WNL; troponin 6.7; BNP 10; procalcitonin 0.04 on arrival - CBC without f/u leukocytosis 07/01 - BioFire negative - Sputum culture gram stain with many gram neg bacilli, few gram neg cocci, mod gram + cocci, prelim with haemophilus influenza A beta lactamase positive, blood cx pending - MRSA nasal swab + - CXR WNL - Chest CTA negative for PE, reveals multifocal PNA - EKG NSR, remained in NSR on tele - O2 via NC to maintain >92%; No O2 at baseline, required 2-3 LPM on nasal cannula with successful wean on 07/02 and passing of two step - Flutter valve + incentive spirometer - Acetaminophen prn fever/pain - Mucinex BID - Cont Dulera - DuoNebs scheduled - Vanco + cefepime IV, d/c on Augmentin for 7 days - f/u with [facility] as already scheduled and PCP in on week Admission HPI Per Admitting Provider 69-year-old male PMHx asthma and chronic sinus conditions presenting for worsening shortness of breath and congestion over the past week. Patient was seen by his instructional supervisor 2 weeks [employer], still waiting for chest imaging and sputum culture results to return. Patient states that he was diagnosed with asthma, but that his PCP was concerned that there was another underlying diagnosis. He does admit to on and off shortness of breath that has been worsening over the past week, stating that his chest will get tight at times and he feels as though he cannot get a full breath in and out. Over the weekend, he started to develop worsening productive cough with yellow sputum. He has to cough up sputum approximately every 15 minutes. 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 He did have chills the day [employer], but no documented fever. Patient states that he often has sinus symptoms and he did have a sinus surgery in February or March 2025. He uses daily sinus rinses. Overall the cough and shortness of breath is worsened, prompting him to come to the ED in conjunction with low oxygen readings at home, into the mid 80s. Patient denies chest pain, palpitations, abdominal pain, N/V/D/C, numbness/tingling, fever, LUTS, additional URI symptoms, weakness, or falls. No known sick contacts. Never smoked. Patient does landscaping, states that there may be possible exposure irritating his breathing. He does use his daily nebulizer and inhalers. ED evaluation reveals CBC with mild leukocytosis 13.31, H&H 14.4/40.9; PT/INR WNL; VBG's WNL; CMP sodium 135, glucose 110; troponin 6.7; BNP 10; procalcitonin 0.04; BioFire negative; CXR WNL; chest CTA no PE, multifocal PNA noted; EKG NSR at 94 bpm.; Provided with 500 mL NSS, methylprednisolone 125 mg IV, guaifenesin 1200 mg p.o., doxycycline 100 mg IV, ceftriaxone 2 g IV, and albuterol nebulizer in ED. Discharge Exam GENERAL APPEARANCE: A&O. Sitting comfortably in bed. NAD. SKIN: Normal color without rashes or lesions. Normal turgor. HEENT: Head AT/NC. Buccal mucosa is moist and pink. NECK: No jugular venous distention. No thyroid enlargement. There is no lymphadenopathy. HEART: RRR without m/g/r LUNGS: Normal inspiratory effort. CTA in all saini. ABDOMEN: No guarding or rigidity. Normoactive BS in all four quadrants. Abdomen soft and NT. MSK: No bony gross/deformities throughout. ROM intact. EXTREMITIES: No edema, No peripheral cyanosis. Neuro: CN 2-12 grossly intact. No focal neuro deficits PSYCHIATRIC: Normal affect. Eye contact is good. Speech is normal rate and content. Responses are appropriate. Discharge Plan Discharge Items Patient Disposition: Home - Self-Care Reason For Visit: HAP Discharge Diagnosis: Pneumonia Condition on Discharge: Fair Activity: Resume your previous activity Non-emergency contact: Primary Care Provider Call non-emergency contact if: you have any medication questions, your symptoms worsen, your rectal temperature is above 100.4 and your temperature is above 101.5 Follow-up/Referrals: Roseline Maher [Primary Care Provider] - (Please call your primary care provider to schedule a hospital follow-up appointment within 7-10 days.) Diet: Carb Consistent or DM2 Addtl Attending Provider Instructions: Mr. Nuñez, You were admitted to the hospital for an infection in your lungs. You were given two antibiotics through an IV during your hospitalization. Your sputum culture showed a bacteria that can be treated with an oral antibiotic at home. Although you were on oxygen during your hospital stay, we were able to wean you off the oxygen and you passed the walking test without oxygen successfully. Please ensure you follow up with [facility] upon discharge and your PCP within one week. Medications: Your medication list has been reviewed and reconciled upon discharge to ensure accuracy and continuity of care. An updated list of all your medications is included with your hospital discharge paperwork. Please review this list closely, and make note of any changes. We sent a new medication called Augmentin to your pharmacy. Take times a day for the next 7 days. Start this medication tomorrow. This is an antibiotic to help your lung infection. Take your medications as instructed; do not skip a dose of your medicines. Make sure all of your doctors know every medicine you are taking (including hyyx-qyu-zgpoobi medicines, vitamins, and supplements). Call your primary care provider before taking any new medicines (including over- the-counter medicines, vitamins, and supplements), because some of these may interact with your current medications, or may make your symptoms worse. Tell your primary care provider if you cannot afford your medications. Activity: You can do normal everyday activities as your body allows. Take rest breaks if you feel tired. Do not overexert. Stop activity if you have pain, shortness of breath or feel dizzy. Follow-up appointments: Make an appointment with your primary care physician within one week of discharge. A copy of this summary will be sent to them. Every time you see your primary care physician, or any other doctor, bring your medication list, and a list of questions. CONTACT YOUR PRIMARY CARE PROVIDER if you experience any of the following: Shortness of breath or difficulty breathing Fevers or chills Feeling tired with normal activity or experiencing dizziness or fainting Difficulty following your treatment plan, or difficulty taking medications CALL 911 OR GO TO THE EMERGENCY DEPARTMENT if you experience any of the following: Severe abdominal pain or nausea/vomiting Severe chest pain, or chest pain that radiates (moves) to your jaw or arm Sudden, severe shortness of breath or difficulty breathing Thank you for allowing us to participate in your care. Pending Studies at Discharge: Yes Studies:: final sputum culture, final blood culture results Stand-Alone Forms: My [facility] Magic[employer], Smoking Cessation Medications and DC Order Prescriptions: New amoxicillin-pot clavulanate 875-125 mg tablet 1 tab PO BID Qty: 14 0RF Continued losartan 100 mg tablet 100 mg PO DAILY montelukast 10 mg tablet 10 mg PO DAILY ibuprofen [Advil] 200 mg tablet 200 mg PO Q6H PRN (Reason: Pain) azelastine 137 mcg (0.1 %) spray,non-aerosol 1 spray intranasal BID PRN (Reason: Congestion) Rx Instructions: administer into each nostril ipratropium-albuterol 0.5 mg-3 mg(2.5 mg base)/3 mL solution for nebulization 3 ml INHALATION BID alprazolam 0.25 mg tablet 0.125 - 0.25 mg PO DAILY PRN (Reason: Anxiety) omeprazole 20 mg capsule,delayed release(DR/EC) 20 mg PO DAILYBB fluticasone propionate 50 mcg/actuation spray,suspension 1 - 2 spray INTRANASAL DAILY metformin 500 mg tablet extended release 24 hr 1,000 mg PO QAM ezetimibe 10 mg tablet 10 mg PO DAILY guaifenesin [Mucinex] 1,200 mg Tablet Extended Release 12hr 1,200 mg PO Q12H PRN (Reason: Congestion) Dulera 200-5 mcg/actuation HFA aerosol inhaler 2 puff INHALATION Q12H Discharge Orders: Discharge Order (Routine); Ordered 07/02/25 Ordered By: Kayleen Mckeon Admission Data Admit Date/Time: 06/30/25 22:27 Attending Provider: Paula Sethi Admit Provider: Daryl Fleming Primary Care Provider: Roseline Maher Other Providers: Daryl Fleming Hospital Stay Data Consultations 06/30/25 21:29 ED Decision to Admit Stat Diagnostic Imagining Performed 06/30/25 18:24 CT angio chest PE protocol Stat Pending Results Patient Have Any Pending Studies at Discharge: Yes Discharge Instructions Given to Patient (Per Discharging Provider) Mr. Nuñez, Hector were admitted to the hospital for an infection in your lungs. You were given two antibiotics through an IV during your hospitalization. Your sputum culture showed a bacteria that can be treated with an oral antibiotic at home. Although you were on oxygen during your hospital stay, we were able to wean you off the oxygen and you passed the walking test without oxygen successfully. Please ensure you follow up with [facility] upon discharge and your PCP within one week. Medications: Your medication list has been reviewed and reconciled upon discharge to ensure accuracy and continuity of care. An updated list of all your medications is included with your hospital discharge paperwork. Please review this list closely, and make note of any changes. We sent a new medication called Augmentin to your pharmacy. Take times a day for the next 7 days. Start this medication tomorrow. This is an antibiotic to help your lung infection. Take your medications as instructed; do not skip a dose of your medicines. Make sure all of your doctors know every medicine you are taking (including nnma-izg-bjjdpor medicines, vitamins, and supplements). Call your primary care provider before taking any new medicines (including over- the-counter medicines, vitamins, and supplements), because some of these may interact with your cur rent medications, or may make your symptoms worse. Tell your primary care provider if you cannot afford your medications. Activity: You can do normal everyday activities as your body allows. Take rest breaks if you feel tired. Do not overexert. Stop activity if you have pain, shortness of breath or feel dizzy. Follow-up appointments: Make an appointment with your primary care physician within one week of discharge. A copy of this summary will be sent to them. Every time you see your primary care physician, or any other doctor, bring your medication list, and a list of questions. CONTACT YOUR PRIMARY CARE PROVIDER if you experience any of the following: Shortness of breath or difficulty breathing Fevers or chills Feeling tired with normal activity or experiencing dizziness or fainting Difficulty following your treatment plan, or difficulty taking medications CALL 911 OR GO TO THE EMERGENCY DEPARTMENT if you experience any of the following: Severe abdominal pain or nausea/vomiting Severe chest pain, or chest pain that radiates (moves) to your jaw or arm Sudden, severe shortness of breath or difficulty breathing Thank you for allowing us to participate in your care. Total Time Total Time Spent Total Time Spent (In Minutes): 50 minutes Coding Level of Care Code 61673 INP/OBS DISCH >30 MIN Diagnoses Multifocal pneumonia J18.8 Hypoxia R09.02 Asthma J45.901 Asthma complication type: with acute exacerbation Asthma persistence: unspecified Asthma severity: unspecified severity
[2025-07-04] MEDS ORDERED: VANCOMYCIN LEVEL ONE (05:00)
--- NOTE | 2025-07-04 15:13 | Electrocardiogram Report ---
Test Reason : Blood Pressure : */* mmHG Vent. Rate : 94 BPM Atrial Rate : 94 BPM P-R Int : 172 ms QRS Dur : 98 ms QT Int : 312 ms P-R-T Axes : -16 -12 -4 degrees QTcB Int : 390 ms Normal sinus rhythm Inferior infarct , age undetermined Abnormal ECG When compared with ECG of 14-Oct-2010 12:59, Inferior infarct is now Present Confirmed by Vern Valdez ([id number]) on 07/04/2025 3:13:46 PM Referred By: REFERRED SELF Confirmed By: Vern Valdez
== END 2025-07-02 19:20 | disposition home or self-care (01) | DRG 194 ==
LOC: ED 17:49 → 2W 22:27 → SUATTDRO 22:27 → 2W 07-01 00:26